=== PATIENT | female | born 1965 | race Caucasian/White ===

== ENCOUNTER 2016-07-03 16:45 | Emergency (ER) | END 2016-07-03 20:42 | disposition home or self-care (01) | DX: I49.3 Ventricular premature depolarization (principal); R40.2252 Coma scale, best verbal response, oriented, at arrival to emergency department; I10 Essential (primary) hypertension; R06.02 Shortness of breath; R40.2362 Coma scale, best motor response, obeys commands, at arrival to emergency department; R40.2142 Coma scale, eyes open, spontaneous, at arrival to emergency department | CPT/HCPCS: 36415; 71010; 80053; 82550; 82553; 83735; 84443; 84484; 85025; 85610; 85730; 93005; 99285; J0360 ==